=== PATIENT | male | born 1995 | race Caucasian/White ===

== ENCOUNTER 2017-10-13 09:25 | Day surgery (SDC) | payer OTHER ==
--- NOTE | 2017-10-12 12:39 | RADIOLOGY REPORT (SQ) ---
EXAM DESCRIPTION: CHEST PA/LATERAL COMPLETED DATE/TIME: 10/12/2017 12:30 pm REASON FOR STUDY: PRE-OP COMPARISON: None. EXAM PARAMETERS: NUMBER OF VIEWS: two views TECHNIQUE: Digital Frontal and Lateral radiographic views of the chest acquired. RADIATION DOSE: NA LIMITATIONS: The patient's arms obscure detail in the retrosternal region somewhat. FINDINGS: LUNGS AND PLEURA: No opacities, masses or pneumothorax. No pleural effusion. MEDIASTINUM AND HILAR STRUCTURES: No masses or contour abnormalities. HEART AND VASCULAR STRUCTURES: Heart normal size. No evidence for failure. BONES: No acute findings. HARDWARE: Small linear opaque density overlies the lateral right upper chest, may be artifactual. OTHER: No other significant finding. IMPRESSION: NO SIGNIFICANT RADIOGRAPHIC FINDING IN THE CHEST. TECHNICAL DOCUMENTATION: JOB ID: [id number] [employer]- All Rights Reserved Reading location - IP/workstation name: [email or web address]
[2017-10-12 13:26] LABS: APPEARANCE,URINE CLEAR; BILIRUBIN,URINE NEGATIVE (NEGATIVE); COLOR,URINE YELLOW; GLUCOSE, URINE NEGATIVE (NEGATIVE); KETONES,URINE NEGATIVE (NEGATIVE); LEUKOCYTE ESTERASE,URINE NEGATIVE (NEGATIVE); NITRITE,URINE NEGATIVE (NEGATIVE); PROTEIN,URINE NEGATIVE (NEGATIVE); URINE SPECIFIC GRAVITY 1.019; UROBILINOGEN,URINE NEGATIVE mg/dL (<2.0)
[2017-10-12 13:39] LABS: HEMATOCRIT 42.8 % (37.9-51.0); HEMOGLOBIN 15.1 g/dL (13.5-17.0); MEAN CORPUSCULAR HEMOGLOBIN 30.6 pg (27.0-33.4); MEAN CORPUSCULAR HGB CONC 35.3 g/dL (32.0-36.0); MEAN CORPUSCULAR VOLUME 87 fl (80-97); PLATELET COUNT 188 10^3/uL (150-450); RED BLOOD COUNT 4.93 10^6/uL (4.35-5.55); RED CELL DISTRIBUTION WIDTH 12.4 % (11.5-14.0)
[2017-10-12 13:43] LABS: ANION GAP 15 (5-19); BLOOD UREA NITROGEN 18 mg/dL (7-20); CALCIUM 9.8 mg/dL (8.4-10.2); CARBON DIOXIDE 27 mmol/L (22-30); CHLORIDE 102 mmol/L (98-107); GLUCOSE 86 mg/dL (75-110); POTASSIUM 4.8 mmol/L (3.6-5.0); SODIUM 143.8 mmol/L (137-145)
--- NOTE | 2017-10-12 22:43 | EKG REPORT ---
SEVERITY:- NORMAL ECG - SINUS RHYTHM LOW VOLTAGE FRONTAL LEADS : Confirmed by: Ginny Power 12-Oct-2017 22:42:46
[~2017-10-13 09:25] MED LIST: CEFAZOLIN 2 GM/D5W RTU 2 GM/50 ML RTUPB IV PRN; LACTATED RINGERS 1000 ML IV PRN; LIDOCAINE 0.5% INJ-PF (5 MG/ML) 50 ML SDV SUBCUT PRN
[2017-10-13] MEDS ORDERED: CLINDAMYCIN 600 MG/D5W RTU 600 MG/50 ML RTUPB IV ONE (09:43)
[2017-10-13] MEDS ORDERED: FENTANYL CITRATE INJ/PF 100 MCG/2 ML AMPUL ONE ×2 (10:04→15:56)
[2017-10-13] MEDS ORDERED: MIDAZOLAM 2 MG/2 ML INJ ONE (10:04)
[2017-10-13] MEDS ORDERED: KETOROLAC TROMETHAMINE 60 MG/2 ML SDV ONE (10:04)
[2017-10-13] MEDS ORDERED: PROPOFOL INJ 200 MG/20 ML VIAL IV ONE (10:05)
[2017-10-13] MEDS ORDERED: ONDANSETRON HCL INJ/PF 4 MG/2 ML SDV ONE (10:05)
[2017-10-13] MEDS ORDERED: DEXAMETHASONE SOD PHOSPHATE INJ 4 MG/1 ML VIAL ONE (10:05)
[2017-10-13] MEDS ORDERED: BUPIVACAINE HCL 0.5 % INJ/PF 30 ML SDV ONE (10:57)
[2017-10-13] MEDS ORDERED: MORPHINE SULFATE 10 MG/ML INJ IV PRN ×2 (13:23→16:04)
[2017-10-13] MEDS ORDERED: FENTANYL CITRATE INJ/PF 100 MCG/2 ML AMPUL IV PRN ×3 (13:23)
[2017-10-13] MEDS ORDERED: MEPERIDINE HCL/PF INJ 25 MG/1 ML DISP.SYRIN IV PRN (13:23)
[2017-10-13] MEDS ORDERED: PROMETHAZINE HCL INJ 25 MG/1 ML VIAL IV PRN ×2 (13:23)
[2017-10-13] MEDS ORDERED: DIPHENHYDRAMINE HCL 50 MG/ML VIAL IV PRN (13:23)
--- NOTE | 2017-10-13 15:55 | RADIOLOGY REPORT (SQ) ---
EXAM DESCRIPTION: NO CHG FLUORO; ELBOW LEFT AP/LATERAL COMPLETED DATE/TIME: 10/13/2017 3:46 pm REASON FOR STUDY: LEFT ELBOW ORIF S53.105A UNSP DISLOCATION OF LEFT ULNOHUMERAL JOINT, INIT EN S52. 122A DISP FX OF HEAD OF LEFT RADIUS, INIT FOR CLOS FX S52.042A DISP FX OF CORONOID PROCESS OF LEFT ULNA, INIT FOR COMPARISON: None. FLUOROSCOPY TIME: 2 minutes 29 seconds. 5 images saved to PACS. TECHNIQUE: Intra-operative images acquired during surgical procedure to evaluate progress. NUMBER OF IMAGES: 5 LIMITATIONS: None. FINDINGS: Images reveal open reduction internal fixation of radial head fracture. Please correlate with operative note. IMPRESSION: IMAGE(S) OBTAINED DURING PROCEDURE. COMMENT: Quality ID [id number]: Final reports for procedures using fluoroscopy that document radiation exp osure indices, or exposure time and number of fluorographic images (if radiation exposure indices are not available) Please consult full operative report of the attending physician for description of the procedure. TECHNICAL DOCUMENTATION: JOB ID: [id number] [employer]- All Rights Reserved Reading location - IP/workstation name: [email or web address]
--- NOTE | 2017-10-13 15:55 | RADIOLOGY REPORT (SQ) ---
EXAM DESCRIPTION: NO CHG FLUORO; ELBOW LEFT AP/LATERAL COMPLETED DATE/TIME: 10/13/2017 3:46 pm REASON FOR STUDY: LEFT ELBOW ORIF S53.105A UNSP DISLOCATION OF LEFT ULNOHUMERAL JOINT, INIT EN S52. 122A DISP FX OF HEAD OF LEFT RADIUS, INIT FOR CLOS FX S52.042A DISP FX OF CORONOID PROCESS OF LEFT ULNA, INIT FOR COMPARISON: None. FLUOROSCOPY TIME: 2 minutes 29 seconds. 5 images saved to PACS. TECHNIQUE: Intra-operative images acquired during surgical procedure to evaluate progress. NUMBER OF IMAGES: 5 LIMITATIONS: None. FINDINGS: Images reveal open reduction internal fixation of radial head fracture. Please correlate with operative note. IMPRESSION: IMAGE(S) OBTAINED DURING PROCEDURE. COMMENT: Quality ID [id number]: Final reports for procedures using fluoroscopy that document radiation exp osure indices, or exposure time and number of fluorographic images (if radiation exposure indices are not available) Please consult full operative report of the attending physician for description of the procedure. TECHNICAL DOCUMENTATION: JOB ID: [id number] [email or web address]- All Rights Reserved Reading location - IP/workstation name: [email or web address]
[2017-10-13] MEDS ORDERED: ONDANSETRON HCL INJ/PF 4 MG/2 ML SDV IV PRN (16:04)
[2017-10-13] MEDS ORDERED: OXYCODONE-ACETAMINOPHEN 5-325 MG TABLET PO PRN (16:04)
--- NOTE | 2017-10-13 16:05 | Discharge Summary ---
Discharge Summary (SDC) - Discharge Final Diagnosis: Left elbow fracture dislocation Date of Surgery: 10/13/17 Discharge Date: 10/13/17 Condition: Good Treatment or Instructions: Schedule Follow Up w/ Dr. Nile Ochoa @ [facility] for Surgery to be seen in 10-14 days or as scheduled [place]: [place]: [place]: Ice and elevate Keep splint clean/dry/intact. If your fingers become numb please unwrap the Mihir wrap but leave the splint in place, if the sensation does not return within 30 minutes please return to the emergency department. May begin finger range of motion attempting to make full fist. Please use ibuprofen (Motrin or Advil) 600-800 mg every 8 hours as needed for pain or fever DO NOT TAKE w/ TORADOL may use once TORADOL complete. You may also use acetaminophen (Tylenol) 1000 mg every 4-6 hours as needed for pain or fever. Please be aware that many medications contain acetaminophen, do not exceed a total of 1000 mg of acetaminophen every 6 hours. If ibuprofen and acetaminophen are not sufficient for your pain you may take the Percocet/[place]. Please be aware that the Percocet/[place] does contain Tylenol. Stool softener of choice when on pain medication. Prescriptions: Ketorolac Tromethamine [Toradol 10 mg Tablet] 10 mg PO Q8HP PRN #10 tablet PRN Reason: Oxycodone HCl/Acetaminophen [Percocet 5-325 mg Tablet] 1 tab PO Q6 #30 tab Discharge Diet: As Tolerated Respiratory Treatments at Home: Deep Breathing/Coughing Discharge Activity: No Lifting Over 10 Pounds, No Lifting/Push/Pulling Report the Following to Your Physician Immediately: Fever over 101 Degrees, Unusual Bleeding, Redness, Swelling, Warmth, Increased Soreness - Low
[2017-10-13] MEDS ORDERED: PROMETHAZINE HCL INJ 25 MG/1 ML VIAL ONE (16:09)
--- NOTE | 2017-10-13 16:14 | Operative Report ---
Operative Report DATE OF SURGERY: 10/13/17 PREOPERATIVE DIAGNOSIS: LEFT elbow fracture dislocation POSTOPERATIVE DIAGNOSIS: Left elbow fracture dislocation OPERATION: 1. Open reduction internal fixation left radial head fracture. 2. Lateral collateral ligament repair SURGEON: TRAVIS PATIÑO COMPLICATIONS: None ESTIMATED BLOOD LOSS: 25 cc PROCEDURE: Indication for above procedure: 22-year-old male who sustained an injury to his left and right elbow while playing basketball at work during a fitness activity. Patient landed awkwardly on his left elbow resulting in a dislocation which was close reduced in the emergency room. Patient also had contralateral radial head fracture as well. Patient was sent to my office which point we discussed treatment options and CT scan was done demonstrating comminuted radial head fracture with associated coronoid fracture. We discussed postoperative expectations, rehabilitation and outcomes. Risks and benefits were discussed and explained to the patient patient verbalized understanding consented for the procedure. Procedure In Detail: Patient was seen and evaluated in the preoperative holding area. The LEFT upper extremity was initialized and marked. Patient received 2g of Ancef IV for bacterial prophylaxis. Patient was taken back to the operative room where transferred to the operative table and placed under general anesthesia. Once they were adequately anesthetized a nonsterile tourniquet was placed on the upper extremity. A surgical team debriefing was performed ensuring all instrumentation was available, the surgical procedure was discussed with possible concerns reviewed. The upper extremity was prepped with ChloraPrep and draped in a sterile fashion. A timeout was done identifying correct patient, procedure and extremity everyone in attendance agree with this and verbalized no concerns. The extremity was exsanguinated the tourniquet was inflated to 250 mmHg. Lateral skin incision was made from the lateral epicondyle obliquely across the radiocapitellar joint. Comer's interval was utilized. Upon entering the radiocapitellar joint there was evidence of hematoma which was flushed. Small bone fragments were identified and removed. There was complete destruction of the lateral collateral ligament. Once the radial head was exposed under C-arm fluoroscopy was able to isolate a portion of the radial head once the portion the radial head was placed anatomically there is a small defect remaining in the radial head approximately 3 mm in size. There is also evidence of a chondral defect along the posterior aspect of the capitellum where the radial head would impinge. The small defect would be located just anterior to the proximal radial ulnar joint with full pronation. Given the patient's young age decision was made to proceed with radial head ORIF if there continued to be evidence of impingement I would proceed with arthroplasty. The joint was once again copiously irrigated with normal saline until all loose bodies were removed. With the arm in full supination the fracture defect was exposed. The area was debrided. The fragment was then secured with 2 K wires. C-arm fluoroscopy was obtained confirming acceptable reduction and placement of the K wires outside the proximal radial ulnar joint to assure appropriate sizing. I then placed 2x micro Acutrak screws perpendicular to the fracture line which provided optimal stability. There was no evidence of loosening. The ulnohumeral and radiocapitellar joints were then reduced there is no evidence of impingement with pronation supination at full flexion and extension of 30. The wound was then copiously irrigated with normal saline and I turned my attention to lateral collateral ligament repair. A running Krakw suture with #2 FiberWire was placed along the lateral ulnar collateral ligament running from proximal to distal the distal to proximal. With a 2.5 mm drill bit to diverging tunnels were placed one anteriorly and one posteriorly. A Hernandez suture passer then passed 1 limb of the FiberWire anteriorly and a second limb of the FiberWire posteriorly. The elbow was then flexed at 90 with full pronation and the ligament reapproximated with the bone tunnels. I then repaired the extensor mechanism back to the lateral epicondyle with #2 FiberWire. The remaining fascia was closed with interrupted 0 Vicryl suture. C-arm fluoroscopy was obtained demonstrating reduction of the ulnohumeral radiocapitellar joint no evidence of instability from full flexion to 30 of extension. There was no evidence of impingement at the proximal radial ulnar joint of the hardware or defect within the radial head. The wound was once again copiously irrigated with normal saline. Subcutaneous tissues were closed with interrupted 4-0 Monocryl suture. Skin was closed with yvon. 30 cc of 0.5% bupivacaine without epinephrine was injected for postoperative pain control. Wound was dressed Xeroform 4 x 4's and patient was placed in a posterior elbow splint maintaining 70 of flexion in neutral rotation. Postoperative plan: Patient will follow-up the office in 2 weeks at which point we will begin occupational therapy progressing to full flexion and extension beginning at 45 decreasing it 15 per week with goal of achieving full extension at 6 weeks postoperatively. Will obtain radiographs at follow-up visit.
[2017-10-13 18:56] VITALS: BP 146/71
== END 2017-10-13 18:25 | disposition home or self-care (01) ==
LOC: OROUT 09:25
PROVIDERS: ATTEND Orthopaedic Surgery
DX: S53.105A Unspecified dislocation of left ulnohumeral joint, initial encounter (principal); S52.122A Displaced fracture of head of left radius, initial encounter for closed fracture; S52.042A Displaced fracture of coronoid process of left ulna, initial encounter for closed fracture; W19.XXXA Unspecified fall, initial encounter; Y93.67 Activity, basketball; Y92.69 Other specified industrial and construction area as the place of occurrence of the external cause
CPT/HCPCS: 93005; 36415; 85027; 80048; 81001; 71046; 73070; 93010; 24665; 24999; C1769; J2250; J3490; J1100; J1885; J3010; J2550; J2405; J2704; 01740; J0690